=== PATIENT | male | born 1965 | race Two or more races ===

== ENCOUNTER 2019-11-01 16:03 | Inpatient (IN) | payer OTHER ==
[~2019-11-01] VITALS: Ht 177.8 cm; Wt 78.0 kg
[2019-11-01 17:56] LABS: Basophils # (auto) 0 10 ^3/uL (0-0.2); Basophils % (auto) 0.1 % (0.0-2.0); Eosinophils # (auto) 0 10 ^3/uL (0-0.8); Monocytes # (auto) 0.3 10 ^3/uL (0-1.3); Neutrophils # (auto) 13.8 10 ^3/uL (1.6-8.6); Red Cell Distribution Width 14.4 % (11.8-14.3); White Blood Cell 14.5 10^3/uL (4.4-10.8)
[2019-11-01 18:08] LABS: Hematocrit 43.8 % (41.0-53.0); Lymphocytes # (auto) 0.4 10 ^3/uL (0.4-5.4); Lymphocytes % (auto) 2.6 % (10.0-50.0); Mean Corpuscular Hemoglobin 33.3 pg (28.0-32.0); Mean Corpuscular Hgb Conc. 34.2 g/dL (32.0-36.0); Mean Corpuscular Volume 97.4 fL (80.0-100.0); Monocytes % (auto) 2.2 % (0.0-12.0); Neutrophils % (auto) 95.1 % (37.0-80.0); Nucleated Red Blood Cells % 0.1 %; Platelet Count (auto) 209 10^3/uL (140-450); Red Blood Cells 4.49 10^6/uL (4.5-5.90)
[2019-11-01 18:21] LABS: Alanine Aminotransferase 22 U/L (16-61); Anion Gap 6 (5-15); Aspartate Aminotransferase 14 U/L (15-37); BUN/Creatinine Ratio 14.2; Blood Urea Nitrogen 17 mg/dL (7-18); Carbon Dioxide 23 mmol/L (21-32); Chloride 106 mmol/L (98-107); GFR African American 81 mL/min; GFR Non-African American 67 mL/min; Glucose 102 mg/dL (74-106); Potassium 3.5 mmol/L (3.5-5.1); Sodium 135 mmol/L (136-145)
[2019-11-01 18:25] LABS: Alkaline Phosphatase 112 U/L (45-117); Bilirubin, Total 0.8 mg/dL (0.2-1.0)
[2019-11-01] MEDS ORDERED: KETOROLAC TROMETH 15 mg/ml 1ML VL IV ONE (18:30)
[2019-11-01 18:55] LABS: Urine Bacteria MOD /hpf (None Seen); Urine Blood 2+ /uL (Negative); Urine Hyaline Cast FEW /lpf (0 - 2); Urine Mucus FEW (None Seen); Urine Specific Gravity 1.021 (1.001-1.035); Urine WBC 1254 /hpf (0 - 3); Urine WBC Clumps PRESENT /hpf (None Seen)
[2019-11-01] MEDS ORDERED: ONDANSETRON HCL 4 MG/2 ML VIAL IV ONE (19:15)
[2019-11-01] MEDS ORDERED: SODIUM CHLORIDE 0.9% 1,000 ML IV ONE (19:45)
[2019-11-01] MEDS ORDERED: cefTRIAXone 1GM/50ML D5W 50 ML IV ONE (19:45)
[2019-11-01] MEDS ORDERED: MORPHINE SULFATE 4 MG/ML SYR/VIAL IV ONE (20:00)
[2019-11-01] MEDS ORDERED: NITROGLYCERIN 0.4 MG SL TAB SL PRN (21:00)
[2019-11-01] MEDS ORDERED: MORPHINE SULF INJ 2 MG/ML SYRINGE 1ML IV PRN (21:00)
[2019-11-01] MEDS ORDERED: TRIAPOW6 XX (22:14)
[2019-11-01] MEDS ORDERED: ACYC-43 PO (22:14)
[2019-11-01] MEDS ORDERED: ACET-1156 PO (22:14)
[2019-11-01] MEDS ORDERED: DULO1CAP5 PO (22:14)
[2019-11-01] MEDS ORDERED: EMTRTAB7 PO (22:14)
[2019-11-01 22:15] VITALS: BP 106/64
[2019-11-01] MEDS: D5W/SOD CHL 0.45% 1,000 ML IV SCH (22:55)
[2019-11-01] MEDS: MORPHINE SULFATE 4 MG/ML SYR/VIAL IV PRN (22:56)
[2019-11-02] MEDS: MORPHINE SULFATE 4 MG/ML SYR/VIAL IV PRN ×3 (04:43→23:41)
[2019-11-02] MEDS: D5W/SOD CHL 0.45% 1,000 ML IV SCH ×4 (05:18→23:45)
[2019-11-02 05:45] VITALS: BP 102/68
[2019-11-02 08:57] LABS: INR 1.14 (0.9-1.15); Partial Thromboplastin Time 27.3 sec (23.64-32.05)
[2019-11-02 09:00] VITALS: BP 109/61
[2019-11-02] MEDS: TAMSULOSIN HYDROCHLORIDE 0.4 MG CAP PO SCH (10:03)
[2019-11-02] MEDS: ENOXAPARIN SOD 40 MG/0.4 ML SYRINGE SC SCH (10:03)
[2019-11-02 13:00] VITALS: BP 105/67
[2019-11-02 17:00] VITALS: BP 108/74
[2019-11-02 22:09] VITALS: BP 102/62
[2019-11-03] MEDS: MORPHINE SULFATE 4 MG/ML SYR/VIAL IV PRN ×4 (03:41→23:34)
[2019-11-03] MEDS: D5W/SOD CHL 0.45% 1,000 ML IV SCH ×3 (06:49→23:38)
[2019-11-03 08:30] VITALS: BP 124/83
[2019-11-03] MEDS ORDERED: LIDOCAINE 2%HCL (LOCAL ANESTH.) INJ 20ML MDV ONE (08:40)
[2019-11-03] MEDS ORDERED: IOHEXOL 350 MG/ML 100ML IJ ONE (08:40)
[2019-11-03] MEDS ORDERED: MIDAZOLAM HCL 1MG/1ML-2 ML VIAL ONE (09:03)
[2019-11-03] MEDS ORDERED: fentaNYL CITRATE 100 MCG/2 ML VL ONE (09:03)
[2019-11-03] MEDS: ENOXAPARIN SOD 40 MG/0.4 ML SYRINGE SC SCH (10:00)
[2019-11-03] MEDS: TAMSULOSIN HYDROCHLORIDE 0.4 MG CAP PO SCH (11:06)
[2019-11-03] MEDS: ONDANSETRON HCL 4 MG/2 ML VIAL IV PRN ×2 (11:06→17:04)
[2019-11-03 12:34] VITALS: BP 145/83
[2019-11-03 17:29] VITALS: BP 123/73
[2019-11-03 22:23] VITALS: BP 117/67
[2019-11-04] MEDS: D5W/SOD CHL 0.45% 1,000 ML IV SCH ×4 (05:35→22:20)
[2019-11-04] MEDS: MORPHINE SULFATE 4 MG/ML SYR/VIAL IV PRN ×4 (05:36→23:38)
[2019-11-04 09:00] VITALS: BP 116/48
[2019-11-04] MEDS: TAMSULOSIN HYDROCHLORIDE 0.4 MG CAP PO SCH (10:20)
[2019-11-04] MEDS: ONDANSETRON HCL 4 MG/2 ML VIAL IV PRN ×2 (11:25→18:49)
[2019-11-04 12:30] VITALS: BP 125/79
[2019-11-04 17:24] VITALS: BP 122/79
[2019-11-04 22:00] VITALS: BP 119/76
[2019-11-05 05:00] VITALS: BP 124/83
[2019-11-05] MEDS: D5W/SOD CHL 0.45% 1,000 ML IV SCH ×3 (05:00→18:10)
[2019-11-05 09:15] VITALS: BP 126/71
[2019-11-05] MEDS: ENOXAPARIN SOD 40 MG/0.4 ML SYRINGE SC SCH (09:58)
[2019-11-05] MEDS: TAMSULOSIN HYDROCHLORIDE 0.4 MG CAP PO SCH (09:58)
[2019-11-05] MEDS: MORPHINE SULFATE 4 MG/ML SYR/VIAL IV PRN ×3 (09:58→21:39)
[2019-11-05 13:00] VITALS: BP 118/76
[2019-11-05 17:31] VITALS: BP 120/79
[2019-11-05 21:00] VITALS: BP 124/74
[2019-11-05] MEDS: ONDANSETRON HCL 4 MG/2 ML VIAL IV PRN (21:39)
[2019-11-06] MEDS: D5W/SOD CHL 0.45% 1,000 ML IV SCH ×4 (01:15→21:56)
[2019-11-06] MEDS: MORPHINE SULFATE 4 MG/ML SYR/VIAL IV PRN ×3 (03:03→20:00)
[2019-11-06 05:00] VITALS: BP 117/65
[2019-11-06 06:23] LABS: Basophils # (auto) 0 10 ^3/uL (0-0.2); Basophils % (auto) 0.5 % (0.0-2.0); Eosinophils # (auto) 0.1 10 ^3/uL (0-0.8); Eosinophils % (auto) 1.4 % (0.0-7.0); Hematocrit 40.3 % (41.0-53.0); Hemoglobin 13.6 g/dL (13.5-17.5); Lymphocytes # (auto) 1.8 10 ^3/uL (0.4-5.4); Lymphocytes % (auto) 25.3 % (10.0-50.0); Mean Corpuscular Hgb Conc. 33.8 g/dL (32.0-36.0); Mean Corpuscular Volume 97.7 fL (80.0-100.0); Monocytes # (auto) 0.9 10 ^3/uL (0-1.3); Monocytes % (auto) 11.9 % (0.0-12.0); Neutrophils # (auto) 4.4 10 ^3/uL (1.6-8.6); Neutrophils % (auto) 60.9 % (37.0-80.0); Platelet Count (auto) 211 10^3/uL (140-450); Red Blood Cells 4.13 10^6/uL (4.5-5.90); Red Cell Distribution Width 14.4 % (11.8-14.3); White Blood Cell 7.3 10^3/uL (4.4-10.8)
[2019-11-06 06:34] LABS: Potassium 4.2 mmol/L (3.5-5.1)
[2019-11-06 06:41] LABS: BUN/Creatinine Ratio 12.5; Calcium 8.9 mg/dL (8.5-10.1)
[2019-11-06] MEDS: TAMSULOSIN HYDROCHLORIDE 0.4 MG CAP PO SCH (08:54)
[2019-11-06] MEDS: ENOXAPARIN SOD 40 MG/0.4 ML SYRINGE SC SCH (08:54)
[2019-11-06 09:21] VITALS: BP 126/76
[2019-11-06 13:00] VITALS: BP 126/71
[2019-11-06] MEDS ORDERED: fentaNYL CITRATE 100 MCG/2 ML VL ONE (17:58)
[2019-11-06] MEDS ORDERED: MIDAZOLAM HCL 1MG/1ML-2 ML VIAL ONE (17:59)
[2019-11-06] MEDS ORDERED: ceFAZolin 1GM/50ML 50 ML IV ONE (18:10)
[2019-11-06] MEDS ORDERED: PROPOFOL 10 MG/ML 20 ML IV ONE (18:43)
[2019-11-06] MEDS ORDERED: fentaNYL CITRATE 100 MCG/2 ML VL IV PRN (19:00)
[2019-11-06] MEDS ORDERED: ONDANSETRON HCL 4 MG/2 ML VIAL IV PRN (19:00)
[2019-11-06] MEDS ORDERED: ePHEDrine SULFATE 50 MG/ML AMP IV PRN (19:00)
[2019-11-06] MEDS ORDERED: hydrALAZINE HCL 20 MG/ML VL IV PRN (19:00)
[2019-11-06] MEDS: ONDANSETRON HCL 4 MG/2 ML VIAL IV PRN (20:00)
[2019-11-06 22:00] VITALS: BP 132/89
[2019-11-07] MEDS: MORPHINE SULFATE 4 MG/ML SYR/VIAL IV PRN ×4 (00:54→21:02)
[2019-11-07] MEDS: D5W/SOD CHL 0.45% 1,000 ML IV SCH ×3 (04:51→17:46)
[2019-11-07 05:00] VITALS: BP 105/57
[2019-11-07 09:00] VITALS: BP 111/67
[2019-11-07] MEDS: TAMSULOSIN HYDROCHLORIDE 0.4 MG CAP PO SCH (09:02)
[2019-11-07] MEDS: ENOXAPARIN SOD 40 MG/0.4 ML SYRINGE SC SCH (09:02)
[2019-11-07] MEDS: ONDANSETRON HCL 4 MG/2 ML VIAL IV PRN ×2 (11:30→21:16)
[2019-11-07 13:00] VITALS: BP 125/74
[2019-11-07 17:00] VITALS: BP 131/72
[2019-11-07] MEDS: LACTULOSE 20Gm/30ML SOLN PO SCH (21:02)
[2019-11-07 22:00] VITALS: BP 128/71
[2019-11-08] MEDS: LACTULOSE 20Gm/30ML SOLN PO SCH ×6 (02:41→19:13)
[2019-11-08] MEDS: D5W/SOD CHL 0.45% 1,000 ML IV SCH ×3 (02:41→13:04)
[2019-11-08] MEDS: ONDANSETRON HCL 4 MG/2 ML VIAL IV PRN ×2 (02:42→08:48)
[2019-11-08] MEDS: MORPHINE SULFATE 4 MG/ML SYR/VIAL IV PRN ×3 (02:45→14:58)
[2019-11-08 05:00] VITALS: BP 120/68
[2019-11-08 09:00] VITALS: BP 136/79
[2019-11-08] MEDS: IOHEXOL 300 MG/ML 100ML BOTTLE IJ ONE (09:09)
[2019-11-08] MEDS: TAMSULOSIN HYDROCHLORIDE 0.4 MG CAP PO SCH (09:15)
[2019-11-08] MEDS: ENOXAPARIN SOD 40 MG/0.4 ML SYRINGE SC SCH (09:15)
[2019-11-08 13:00] VITALS: BP 136/78
[2019-11-08 17:00] VITALS: BP 118/70
[2019-11-08] MEDS: HYDROcodone-ACET 5/325MG TAB PO PRN (21:07)
[2019-11-08 22:00] VITALS: BP_SYST 100; BP_SYST 118; BP_DIAS 58; BP_DIAS 66
[2019-11-09] MEDS: LACTULOSE 20Gm/30ML SOLN PO SCH ×2 (02:00→05:17)
[2019-11-09 05:00] VITALS: BP 134/77
[2019-11-09] MEDS: HYDROcodone-ACET 5/325MG TAB PO PRN ×3 (05:00→20:45)
[2019-11-09] MEDS: D5W/SOD CHL 0.45% 1,000 ML IV SCH ×3 (05:00→16:46)
[2019-11-09 09:00] VITALS: BP 121/88
[2019-11-09] MEDS: TAMSULOSIN HYDROCHLORIDE 0.4 MG CAP PO SCH (09:59)
[2019-11-09] MEDS: ENOXAPARIN SOD 40 MG/0.4 ML SYRINGE SC SCH (10:00)
[2019-11-09] MEDS: MORPHINE SULFATE 4 MG/ML SYR/VIAL IV PRN ×2 (10:04→18:39)
[2019-11-09] MEDS ORDERED: IOHEXOL 300 MG/ML 100ML BOTTLE IJ ONE (12:02)
[2019-11-09] MEDS ORDERED: LIDOCAINE 1% (LOCAL ANESTH.) PF 5ml SDV ONE (12:12)
[2019-11-09] MEDS ORDERED: ceFAZolin 1GM/50ML 50 ML IV ONE (12:12)
[2019-11-09] MEDS ORDERED: SUCCINYLCHOLINE CHLORIDE 20 MG/ML 10ML VIAL IV ONE (12:12)
[2019-11-09] MEDS ORDERED: MIDAZOLAM HCL 1MG/1ML-2 ML VIAL ONE (12:38)
[2019-11-09] MEDS ORDERED: PROPOFOL 10 MG/ML 20 ML IV ONE (12:38)
[2019-11-09] MEDS ORDERED: ROCURONIUM 10MG/ML 10ML VIAL IV ONE (12:39)
[2019-11-09] MEDS ORDERED: METOCLOPRAMIDE HCL 5MG/ml INJ 2ml VIAL ONE (12:40)
[2019-11-09] MEDS ORDERED: SODIUM CHLORIDE LOCK 10 ML ONE (12:56)
[2019-11-09] MEDS ORDERED: ePHEDrine SULFATE 50 MG/ML AMP ONE (12:56)
[2019-11-09] MEDS ORDERED: fentaNYL CITRATE 100 MCG/2 ML VL ONE (13:04)
[2019-11-09] MEDS: IOHEXOL 300 MG/ML 100ML BOTTLE IJ ONE (13:10)
[2019-11-09] MEDS ORDERED: NALOXONE HCL 0.4 MG/ML VIAL IV PRN (14:30)
[2019-11-09] MEDS ORDERED: ONDANSETRON HCL 4 MG/2 ML VIAL IV PRN (14:30)
[2019-11-09] MEDS ORDERED: HYDROmorphone HCL 2 MG/ML VL IV PRN ×2 (14:30)
[2019-11-09] MEDS ORDERED: SODIUM CHLORIDE 0.9% 500 ML IV ONE (14:45)
[2019-11-09 17:00] VITALS: BP 155/92
[2019-11-09] MEDS: ONDANSETRON HCL 4 MG/2 ML VIAL IV PRN (17:20)
[2019-11-09 22:00] VITALS: BP 117/64
[2019-11-10] MEDS: MORPHINE SULFATE 4 MG/ML SYR/VIAL IV PRN ×4 (00:42→22:24)
[2019-11-10] MEDS: D5W/SOD CHL 0.45% 1,000 ML IV SCH ×4 (04:32→20:01)
[2019-11-10] MEDS: OXYCODONE W/ ACETAMINOPHEN 5/325MG TABLET PO PRN ×2 (04:32→08:34)
[2019-11-10 05:00] VITALS: BP 118/68
[2019-11-10 08:00] VITALS: BP 108/67
[2019-11-10 09:00] VITALS: BP 108/67
[2019-11-10] MEDS: ENOXAPARIN SOD 40 MG/0.4 ML SYRINGE SC SCH (09:41)
[2019-11-10] MEDS: TAMSULOSIN HYDROCHLORIDE 0.4 MG CAP PO SCH (09:41)
[2019-11-10 13:00] VITALS: BP 128/64
[2019-11-10] MEDS: HYDROcodone-ACET 10/325MG TAB PO PRN ×2 (14:22→20:01)
[2019-11-10 17:00] VITALS: BP 113/63
[2019-11-10] MEDS: ONDANSETRON HCL 4 MG/2 ML VIAL IV PRN (20:01)
[2019-11-10 21:59] VITALS: BP 125/71
[2019-11-11] MEDS: D5W/SOD CHL 0.45% 1,000 ML IV SCH ×4 (01:00→21:00)
[2019-11-11] MEDS: MORPHINE SULFATE 4 MG/ML SYR/VIAL IV PRN ×5 (02:49→23:35)
[2019-11-11] MEDS: ONDANSETRON HCL 4 MG/2 ML VIAL IV PRN ×5 (02:50→23:35)
[2019-11-11 05:00] VITALS: BP 116/71
[2019-11-11 09:00] VITALS: BP 115/67
[2019-11-11] MEDS: TAMSULOSIN HYDROCHLORIDE 0.4 MG CAP PO SCH (09:27)
[2019-11-11] MEDS: HYDROcodone-ACET 10/325MG TAB PO PRN ×2 (09:29→19:57)
[2019-11-11] MEDS: ENOXAPARIN SOD 40 MG/0.4 ML SYRINGE SC SCH ×2 (09:29→09:31)
[2019-11-11] MEDS ORDERED: ACETAMINOPHEN 325 MG TAB PO PRN (10:30)
[2019-11-11 12:17] LABS: Basophils # (auto) 0.1 10 ^3/uL (0-0.2); Eosinophils # (auto) 0 10 ^3/uL (0-0.8); Eosinophils % (auto) 0.1 % (0.0-7.0); Hematocrit 43.3 % (41.0-53.0); Hemoglobin 14.7 g/dL (13.5-17.5); Lymphocytes # (auto) 2.4 10 ^3/uL (0.4-5.4); Lymphocytes % (auto) 44.4 % (10.0-50.0); Mean Corpuscular Hemoglobin 32.9 pg (28.0-32.0); Mean Corpuscular Hgb Conc. 33.8 g/dL (32.0-36.0); Mean Corpuscular Volume 97.3 fL (80.0-100.0); Monocytes # (auto) 0.6 10 ^3/uL (0-1.3); Monocytes % (auto) 10.5 % (0.0-12.0); Neutrophils # (auto) 2.3 10 ^3/uL (1.6-8.6); Platelet Count (auto) 296 10^3/uL (140-450); Red Blood Cells 4.45 10^6/uL (4.5-5.90); Red Cell Distribution Width 14.6 % (11.8-14.3); White Blood Cell 5.3 10^3/uL (4.4-10.8)
[2019-11-11] MEDS: PIPERACILLIN-TAZOB 3.375GM 100 ML IV SCH ×3 (12:20→23:35)
[2019-11-11 12:35] LABS: Potassium 4.2 mmol/L (3.5-5.1)
[2019-11-11 12:41] LABS: Albumin 3.1 g/dL (3.4-5.0); BUN/Creatinine Ratio 7.5; Bilirubin, Total 0.3 mg/dL (0.2-1.0); Calcium 8.6 mg/dL (8.5-10.1); Total Protein 8.2 g/dL (6.4-8.2)
[2019-11-11 13:46] VITALS: BP 107/71
[2019-11-11 17:00] VITALS: BP 115/63
[2019-11-11 22:00] VITALS: BP 109/61
[2019-11-12] MEDS: HYDROcodone-ACET 10/325MG TAB PO PRN ×2 (03:06→19:59)
[2019-11-12 05:42] VITALS: BP 103/63
[2019-11-12] MEDS: D5W/SOD CHL 0.45% 1,000 ML IV SCH ×4 (05:50→23:40)
[2019-11-12] MEDS: PIPERACILLIN-TAZOB 3.375GM 100 ML IV SCH ×3 (05:50→17:48)
[2019-11-12] MEDS: ONDANSETRON HCL 4 MG/2 ML VIAL IV PRN ×4 (06:00→22:08)
[2019-11-12] MEDS: MORPHINE SULFATE 4 MG/ML SYR/VIAL IV PRN ×4 (06:00→22:08)
[2019-11-12 09:40] VITALS: BP 109/69
[2019-11-12] MEDS: ENOXAPARIN SOD 40 MG/0.4 ML SYRINGE SC SCH (10:00)
[2019-11-12] MEDS: TAMSULOSIN HYDROCHLORIDE 0.4 MG CAP PO SCH (10:19)
[2019-11-12 13:00] VITALS: BP 129/82
[2019-11-12 17:42] VITALS: BP 118/55
[2019-11-12 22:00] VITALS: BP 104/61
[2019-11-13 05:00] VITALS: BP 113/63
[2019-11-13] MEDS: MORPHINE SULFATE 4 MG/ML SYR/VIAL IV PRN ×4 (05:14→20:24)
[2019-11-13] MEDS: PIPERACILLIN-TAZOB 3.375GM 100 ML IV SCH ×5 (05:14→23:40)
[2019-11-13] MEDS: ONDANSETRON HCL 4 MG/2 ML VIAL IV PRN ×4 (05:14→20:24)
[2019-11-13] MEDS: D5W/SOD CHL 0.45% 1,000 ML IV SCH ×3 (05:15→23:40)
[2019-11-13 06:29] LABS: Basophils # (auto) 0 10 ^3/uL (0-0.2); Basophils % (auto) 0.7 % (0.0-2.0); Eosinophils # (auto) 0.1 10 ^3/uL (0-0.8); Eosinophils % (auto) 1.5 % (0.0-7.0); Hematocrit 40.3 % (41.0-53.0); Hemoglobin 13.6 g/dL (13.5-17.5); Lymphocytes # (auto) 1.4 10 ^3/uL (0.4-5.4); Lymphocytes % (auto) 37.7 % (10.0-50.0); Mean Corpuscular Hemoglobin 32.8 pg (28.0-32.0); Mean Corpuscular Hgb Conc. 33.8 g/dL (32.0-36.0); Monocytes # (auto) 0.4 10 ^3/uL (0-1.3); Monocytes % (auto) 10.5 % (0.0-12.0); Neutrophils # (auto) 1.9 10 ^3/uL (1.6-8.6); Neutrophils % (auto) 49.6 % (37.0-80.0); Nucleated Red Blood Cells % 0.1 %; Platelet Count (auto) 250 10^3/uL (140-450); Red Blood Cells 4.16 10^6/uL (4.5-5.90); Red Cell Distribution Width 14.4 % (11.8-14.3); White Blood Cell 3.7 10^3/uL (4.4-10.8)
[2019-11-13 06:48] LABS: Albumin 2.6 g/dL (3.4-5.0); Calcium 8.4 mg/dL (8.5-10.1); Potassium 4.5 mmol/L (3.5-5.1)
[2019-11-13 06:52] LABS: Bilirubin, Total 0.3 mg/dL (0.2-1.0); INR 0.99 (0.9-1.15); Partial Thromboplastin Time 28.8 sec (23.64-32.05); Total Protein 7.7 g/dL (6.4-8.2)
[2019-11-13 08:35] VITALS: BP 101/61
[2019-11-13] MEDS: HYDROcodone-ACET 10/325MG TAB PO PRN ×2 (09:08→18:32)
[2019-11-13] MEDS: TAMSULOSIN HYDROCHLORIDE 0.4 MG CAP PO SCH (09:08)
[2019-11-13] MEDS: ENOXAPARIN SOD 40 MG/0.4 ML SYRINGE SC SCH (09:09)
[2019-11-13 13:00] VITALS: BP 128/59
[2019-11-13 17:00] VITALS: BP 101/66
[2019-11-13 22:00] VITALS: BP 97/57
[2019-11-14] MEDS: D5W/SOD CHL 0.45% 1,000 ML IV SCH ×4 (01:48→22:59)
[2019-11-14 02:35] VITALS: BP 94/58
[2019-11-14] MEDS: ONDANSETRON HCL 4 MG/2 ML VIAL IV PRN ×2 (02:41→10:40)
[2019-11-14] MEDS: MORPHINE SULFATE 4 MG/ML SYR/VIAL IV PRN ×2 (02:41→10:40)
[2019-11-14 05:00] VITALS: BP 100/63
[2019-11-14] MEDS: PIPERACILLIN-TAZOB 3.375GM 100 ML IV SCH ×4 (06:27→23:29)
[2019-11-14 07:26] LABS: Basophils # (auto) 0 10 ^3/uL (0-0.2); Basophils % (auto) 0.5 % (0.0-2.0); Eosinophils # (auto) 0.1 10 ^3/uL (0-0.8); Eosinophils % (auto) 1.8 % (0.0-7.0); Hematocrit 37.9 % (41.0-53.0); Lymphocytes # (auto) 1.9 10 ^3/uL (0.4-5.4); Mean Corpuscular Hemoglobin 33.1 pg (28.0-32.0); Mean Corpuscular Hgb Conc. 34.2 g/dL (32.0-36.0); Mean Corpuscular Volume 96.9 fL (80.0-100.0); Monocytes # (auto) 0.3 10 ^3/uL (0-1.3); Monocytes % (auto) 8.7 % (0.0-12.0); Neutrophils # (auto) 1.3 10 ^3/uL (1.6-8.6); Nucleated Red Blood Cells % 0.1 %; Platelet Count (auto) 237 10^3/uL (140-450); Red Blood Cells 3.91 10^6/uL (4.5-5.90); Red Cell Distribution Width 14.4 % (11.8-14.3); White Blood Cell 3.6 10^3/uL (4.4-10.8)
[2019-11-14 09:00] VITALS: BP 101/65
[2019-11-14] MEDS: TAMSULOSIN HYDROCHLORIDE 0.4 MG CAP PO SCH (10:00)
[2019-11-14 12:44] VITALS: BP 100/66
[2019-11-14] MEDS: cefOXitin 2GM/100ML 100 ML IV ONE (17:13)
[2019-11-14] MEDS ORDERED: fentaNYL CITRATE 100 MCG/2 ML VL ONE ×2 (17:17→17:54)
[2019-11-14] MEDS ORDERED: MIDAZOLAM HCL 1MG/1ML-2 ML VIAL ONE (17:17)
[2019-11-14] MEDS ORDERED: PROPOFOL 10 MG/ML 20 ML IV ONE (17:34)
[2019-11-14] MEDS ORDERED: ROCURONIUM 10MG/ML 10ML VIAL IV ONE (17:34)
[2019-11-14] MEDS ORDERED: LIDOCAINE 1% HCL (LOCAL ANESTH.) INJ 20ML MDV ONE (17:43)
[2019-11-14] MEDS ORDERED: MANNITOL FTV 25% 12.5 GM/50 ML 0 ML IV ONE (17:43)
[2019-11-14] MEDS ORDERED: BUPIVACAINE 0.25% INJ 50ML VIAL ONE (17:43)
[2019-11-14] MEDS ORDERED: ONDANSETRON HCL 4 MG/2 ML VIAL IV PRN (19:00)
[2019-11-14] MEDS ORDERED: ePHEDrine SULFATE 50 MG/ML AMP IV PRN (19:00)
[2019-11-14] MEDS ORDERED: hydrALAZINE HCL 20 MG/ML VL IV PRN (19:00)
[2019-11-14] MEDS: HYDROmorphone HCL 2 MG/ML VL IV PRN ×2 (19:29→19:40)
[2019-11-14] MEDS ORDERED: ACETAMINOPHEN IV 100 ML IV ONE (19:59)
[2019-11-14] MEDS ORDERED: ACETAMINOPHEN IV 1000 MG/100ML (10MG/ML) IV ONE (20:00)
[2019-11-14 21:29] VITALS: BP 137/78
[2019-11-14] MEDS: HYDROcodone-ACET 10/325MG TAB PO PRN (22:59)
[2019-11-15] MEDS: MORPHINE SULFATE 4 MG/ML SYR/VIAL IV PRN ×3 (02:24→14:43)
[2019-11-15 03:47] VITALS: BP 101/61
[2019-11-15] MEDS: D5W/SOD CHL 0.45% 1,000 ML IV SCH ×3 (05:00→17:49)
[2019-11-15 05:08] VITALS: BP 94/56
[2019-11-15] MEDS: PIPERACILLIN-TAZOB 3.375GM 100 ML IV SCH ×3 (06:28→17:48)
[2019-11-15 08:44] VITALS: BP 103/57
[2019-11-15] MEDS: TAMSULOSIN HYDROCHLORIDE 0.4 MG CAP PO SCH (09:26)
[2019-11-15] MEDS: HYDROcodone-ACET 10/325MG TAB PO PRN ×3 (09:26→21:17)
[2019-11-15 13:00] VITALS: BP 98/60
[2019-11-15 16:39] VITALS: BP 119/70
[2019-11-15 21:28] VITALS: BP 104/67
[2019-11-16] MEDS: PIPERACILLIN-TAZOB 3.375GM 100 ML IV SCH ×2 (00:07→06:19)
[2019-11-16] MEDS: HYDROcodone-ACET 10/325MG TAB PO PRN ×3 (02:01→10:59)
[2019-11-16 04:46] VITALS: BP 94/60
[2019-11-16] MEDS: D5W/SOD CHL 0.45% 1,000 ML IV SCH ×2 (06:18→07:41)
[2019-11-16 09:00] VITALS: BP 111/66
[2019-11-16] MEDS ORDERED: LEVO500T21 PO (09:22)
[2019-11-16] MEDS: TAMSULOSIN HYDROCHLORIDE 0.4 MG CAP PO SCH (10:06)
[2019-11-16 13:06] VITALS: BP 119/70
== END 2019-11-16 14:54 | DRG 660 ==
LOC: EDBD 16:03 → ER 16:03 → EEVIPCON 16:03 → OVERFLOW 16:04 → EAST 22:02
PROVIDERS: ADMIT Internal Medicine; ATTEND Internal Medicine
PROC: 0T768DZ Dilation of Right Ureter with Intraluminal Device, Via Natural or Artificial Opening Endoscopic (ICD-10-PCS; 2019-11-09)
PROC: BT1D1ZZ Fluoroscopy of Right Kidney, Ureter and Bladder using Low Osmolar Contrast (ICD-10-PCS; 2019-11-09)
PROC: 0TF38ZZ Fragmentation in Right Kidney Pelvis, Via Natural or Artificial Opening Endoscopic (ICD-10-PCS; 2019-11-09)
PROC: 0TF68ZZ Fragmentation in Right Ureter, Via Natural or Artificial Opening Endoscopic (ICD-10-PCS; 2019-11-09)
PROC: 0TF6XZZ Fragmentation in Right Ureter, External Approach (ICD-10-PCS; 2019-11-09)
PROC: 8E0W4CZ Robotic Assisted Procedure of Trunk Region, Percutaneous Endoscopic Approach (ICD-10-PCS; 2019-11-09)
PROC: 0T9330Z Drainage of Right Kidney Pelvis with Drainage Device, Percutaneous Approach (ICD-10-PCS; principal; 2019-11-09 12:35)
PROC: 0TQ34ZZ Repair Right Kidney Pelvis, Percutaneous Endoscopic Approach (ICD-10-PCS; 2019-11-14)
PROC: 0TC34ZZ Extirpation of Matter from Right Kidney Pelvis, Percutaneous Endoscopic Approach (ICD-10-PCS; 2019-11-14)
DX: N13.6 Pyonephrosis (principal); Q62.11 Congenital occlusion of ureteropelvic junction; Z21 Asymptomatic human immunodeficiency virus [HIV] infection status; F41.9 Anxiety disorder, unspecified; Z79.899 Other long term (current) drug therapy; Z80.42 Family history of malignant neoplasm of prostate; Z83.3 Family history of diabetes mellitus; Z87.442 Personal history of urinary calculi; G43.909 Migraine, unspecified, not intractable, without status migrainosus
CPT/HCPCS: 36415; 71045; 71046; 74018; 74176; 74425; 76000; 76942; 80048; 80053; 81001; 82360; 82962; 84484; 85025; 85610; 85730; 86850; 86900; 86901; 87040; 87086; 87088; 87186; 93005; 96365; 96375; 99152; 99153; A4565; C1729; G0378; J0131; J0330; J0690; J0694; J0696; J2001; J2250; J2405; J2543; J2704; J3490; J7042

== ENCOUNTER → 2020-02-22 | Day surgery (SDC) | payer OTHER ==
[~2020-02-22] VITALS: Ht 30.5 cm; Wt 0.5 kg
[~2020-02-22] MED LIST: ACET-1156 PO; ACYC-43 PO; DULO1CAP5 PO; DexAMETHasone SOD PHOS 10MG/1ML VIAL INJ ONE; EMTRTAB7 PO; HYDROmorphone HCL 2 MG/ML VL IV PRN; KETOROLAC TROMETH 30 MG/ML 1ML VIAL IV ONE; LABETALOL HCL 5 MG/ML 4ML SYRINGE IV PRN; LEVO500T21 PO; MIDAZOLAM HCL 1MG/1ML-2 ML VIAL IV PRN; MIDAZOLAM HCL 1MG/1ML-2 ML VIAL ONE; MORPHINE SULF INJ 2 MG/ML SYRINGE 1ML IV PRN; ONDANSETRON HCL 4 MG/2 ML VIAL IV PRN; PROPOFOL 10 MG/ML 20 ML IV ONE; TRIAPOW6 XX; ceFAZolin 1GM/50ML 50 ML IV ONE; ePHEDrine SULFATE 50 MG/ML AMP IV PRN; fentaNYL CITRATE 100 MCG/2 ML VL ONE
[2020-02-22 10:56] VITALS: BP 145/89
== END | disposition home or self-care (01) ==
LOC: SUR 06:11
PROVIDERS: ATTEND Urology
DX: R31.0 Gross hematuria (principal); I10 Essential (primary) hypertension; D64.9 Anemia, unspecified; F20.9 Schizophrenia, unspecified; Z98.890 Other specified postprocedural states; Z79.899 Other long term (current) drug therapy
CPT/HCPCS: 52005; 74018; 74420; 88300; C1769; J0690; J1100; J2250; J2704; J3010; J7030; 76000